=== PATIENT | male | born 1975 | race Caucasian/White ===

== ENCOUNTER 2018-08-14 10:47 | Emergency (ER) | payer OTHER ==
[2018-08-14] MEDS ORDERED: TETRACAINE HCL 0.5% 4 ML OPHTH SOLN ONE (11:22)
[2018-08-14] MEDS ORDERED: FLUORESCEIN SODIUM 1 STRIP STRIP ONE (11:22)
== END 2018-08-14 12:09 | disposition home or self-care (01) ==
LOC: EDH 10:47
DX: S05.02XA Injury of conjunctiva and corneal abrasion without foreign body, left eye, initial encounter (principal); X58.XXXA Exposure to other specified factors, initial encounter; Y93.89 Activity, other specified; Y92.89 Other specified places as the place of occurrence of the external cause; Y99.8 Other external cause status